=== PATIENT | male | born 1975 | race Caucasian/White ===

== ENCOUNTER 2023-09-06 20:01 | Inpatient (IN) | payer OTHER ==
[2023-09-06 20:33] VITALS: BMI 31.5
[2023-09-06] MEDS ORDERED: POLYETHYLENE GLYCOL (HEALTHYLAX) 3350 17 GM PACKET PO PRN (21:20)
[2023-09-06] MEDS ORDERED: BENZONATATE 200 MG CAPSULE PO PRN (21:20)
[2023-09-06] MEDS ORDERED: guaiFENesin 600 MG TABLET.ER (FP) PO PRN (21:20)
[2023-09-06] MEDS ORDERED: MAGNESIUM HYDROX 2400MG/30ML ORAL SUSPENSION 30 ML CUP PO PRN (21:20)
[2023-09-06] MEDS ORDERED: LOPERAMIDE HCL 2 MG CAPSULE PO PRN (21:20)
[2023-09-06] MEDS ORDERED: NALOXONE HCL 0.4 MG/ML VIAL IM PRN (21:20)
[2023-09-06] MEDS ORDERED: IBUPROFEN 400 MG TABLET (FP) PO PRN (21:20)
[2023-09-06] MEDS ORDERED: NALOXONE HCL (KLOXXADO) 8 MG SPRAY NS PRN (21:20)
[2023-09-06] MEDS ORDERED: MAG HYDROX/AL HYDROX/SIMETH 30 ML UNIT-DOSE CUP PO PRN (21:20)
[2023-09-06] MEDS ORDERED: cloNIDine HCL 0.1 MG TABLET ONE (21:30)
[2023-09-06] MEDS: cloNIDine HCL 0.1 MG TABLET PO ONE (21:40)
[2023-09-06] MEDS: THIAMINE 100 MG TABLET PO SCH (22:44)
[2023-09-06] MEDS: MELATONIN 5 MG TABLETS PO SCH (22:45)
[2023-09-07] MEDS ORDERED: TUBERCULIN PPD 5 TU/0.1ML SYRINGE (IN PATIENT USE ONLY) ID ONE (01:22)
[2023-09-07] MEDS: hydrOXYzine PAMOATE 25 MG CAPSULE (FP) PO PRN (06:22)
[2023-09-07] MEDS ORDERED: TUBERCULIN PPD 5 TU/0.1ML VIAL ID ONE (08:37)
[2023-09-07 08:55] LABS: HEMATOCRIT 43.8 % (35.4-49); HEMOGLOBIN 14.2 GM/dL (11.7-16.9); MCH 28.9 pg (25.7-33.7); MCHC 32.5 g/dl (32.0-35.9); MEAN CELL VOLUME 88.9 fl (80-96); MEAN PLT VOLUME 9.6 fl (7.5-11.1); PLATELET COUNT 231 10^3/uL (134-434); RBC 4.92 M/mm3 (4.00-5.60); WHITE BLOOD COUNT 10.9 K/mm3 (4.0-10.0)
[2023-09-07 08:58] LABS: URINE APPEARANCE CLEAR; URINE BILIRUBIN NEGATIVE (NEGATIVE); URINE COLOR YELLOW; URINE GLUCOSE (UA) NEGATIVE (NEGATIVE); URINE KETONE NEGATIVE (NEGATIVE); URINE LEUK ESTERASE NEGATIVE (NEGATIVE); URINE NITRITE NEGATIVE (NEGATIVE); URINE PROTEIN NEGATIVE (NEGATIVE); URINE UROBILINOGEN 0.2 mg/dL (0.2-1.0)
[2023-09-07 09:29] LABS: CHLORIDE 106 mmol/L (98-107); POTASSIUM 4.1 mmol/L (3.5-5.1); SODIUM 140 mmol/L (136-145)
[2023-09-07 09:39] LABS: BLOOD UREA NITROGEN 15.4 mg/dL (7-18)
[2023-09-07 09:42] LABS: SGOT/AST 16 U/L (15-37); SGPT/ALT 23 U/L (13-61)
[2023-09-07 09:43] LABS: ANION GAP 6 mmol/L (4-13); BILIRUBIN,TOTAL 0.3 mg/dL (0.2-1); CO2 28 mmol/L (21-32)
[2023-09-07 09:44] LABS: ALK PHOS 89 U/L (45-117)
[2023-09-07 09:46] LABS: GLUCOSE,RANDOM 114 mg/dL (74-106)
[2023-09-07 09:49] LABS: ALBUMIN 3.3 g/dl (3.4-5.0)
[2023-09-07 09:50] LABS: CALCIUM 9.3 mg/dL (8.5-10.1)
[2023-09-07] MEDS: amLODIPine BESYLATE 10 MG TABLET (FP) PO SCH (10:13)
[2023-09-07] MEDS: NICOTINE 21 MG/24 HOURS TOPICAL PATCH TD SCH (10:13)
[2023-09-07] MEDS: BUPRENORPHINE/NALOXONE 8 MG/2 MG FILM PACKET SL SCH (10:13)
[2023-09-07] MEDS: PRENATAL VITAMINS W/ FOLIC ACID TABLET (FP) PO SCH (10:13)
[2023-09-07] MEDS: PANTOPRAZOLE 20 MG TABLET PO SCH (10:13)
[2023-09-07] MEDS: LISINOPRIL 20 MG TABLET PO SCH (10:14)
[2023-09-07] MEDS: TUBERCULIN PPD 5 TU/0.1ML SYRINGE (IN PATIENT USE ONLY) ID ONE (10:23)
[2023-09-07 11:51] LABS: SYPHILIS W/ RPR CONF NON-REACTIVE (NONREACTIVE)
[2023-09-08] MEDS: AMOXICILLIN 500 MG CAPSULE (FP) PO SCH (14:20)
[2023-09-08] MEDS: METHOCARBAMOL 500 MG TABLET PO PRN (14:20)
[2023-09-08] MEDS: BUPRENORPHINE/NALOXONE 8 MG/2 MG FILM PACKET SL ONE (14:20)
[2023-09-08] MEDS: MECLIZINE HCL 25 MG TABLET (FP) PO SCH (14:21)
[2023-09-09] MEDS: BUPRENORPHINE/NALOXONE 12 MG-3 MG SL FILM PACKET SL SCH (09:28)
[2023-09-15] MEDS: IBUPROFEN 600 MG TABLET (FP) PO PRN (06:32)
[2023-09-15] MEDS: ASPIRIN COATED 81 MG TABLET.EC PO SCH (15:06)
[2023-09-15] MEDS: METHOCARBAMOL 500 MG TABLET PO SCH (17:56)
[2023-09-15] MEDS: BUPRENORPHINE/NALOXONE 12 MG-3 MG SL FILM PACKET SL SCH (17:56)
[2023-09-16] MEDS: PRENATAL VITAMINS W/ FOLIC ACID TABLET (FP) PO SCH (06:09)
[2023-09-16] MEDS: LISINOPRIL 20 MG TABLET PO SCH (06:10)
[2023-09-16] MEDS: PANTOPRAZOLE 20 MG TABLET PO SCH (06:10)
[2023-09-16] MEDS: NICOTINE 21 MG/24 HOURS TOPICAL PATCH TD SCH (06:11)
[2023-09-16] MEDS: amLODIPine BESYLATE 10 MG TABLET (FP) PO SCH (06:30)
[2023-09-16] MEDS: SALICYLIC ACID (WART REMOVER) 9 ML LIQUID TP SCH (09:40)
[2023-09-17] MEDS: NICOTINE POLACRILEX 2 MG GUM BUC PRN (17:39)
[2023-09-22] MEDS: PATIENT'S OWN MEDICATION (NON-FORMULARY) (Omeprazole 20 MG Capsule.Dr) PO SCH (13:54)
[2023-09-25] MEDS: BENZOCAINE/MENTHOL (CHLORASEPTIC ) LOZENGE MM PRN (06:10)
[2023-09-25] MEDS: MECLIZINE HCL 25 MG TABLET (FP) PO PRN (10:32)
[2023-09-26] MEDS: ACETAMINOPHEN 325 MG TABLET (FP) PO PRN (23:00)
[2023-09-27] MEDS ORDERED: guaiFENesin 600 MG TABLET.ER (FP) PO PRN (11:13)
[2023-09-27] MEDS ORDERED: BENZONATATE 200 MG CAPSULE PO PRN (11:13)
[2023-09-27] MEDS ORDERED: DICYCLOMINE HCL 10 MG CAPSULE PO PRN (11:13)
[2023-09-27] MEDS: PSEUDOEPHEDRINE HCL 30 MG TABLET PO SCH (12:45)
[2023-09-28] MEDS: SUVOREXANT 10 MG TABLET PO PRN (21:03)
[2023-09-29] MEDS: AZITHROMYCIN 250 MG TABLET PO ONE (15:15)
[2023-09-30 09:31] VITALS: RESP 18
[2023-09-30] MEDS: AZITHROMYCIN 250 MG TABLET PO SCH (09:41)
[2023-09-30] MEDS: SUVOREXANT 10 MG TABLET PO PRN (21:09)
[2023-10-02 07:13] VITALS: TEMP 97.3
[2023-10-03] MEDS: SUVOREXANT 10 MG TABLET PO PRN (21:19)
[2023-10-04 06:54] VITALS: BP 135/89; PULSE 86
== END 2023-10-04 09:44 | disposition home or self-care (01) | DRG 772 ==
LOC: YASAS 20:01 → Y3W 22:02
PROVIDERS: ADMIT Allergy & Immunology; ATTEND Psychiatry & Neurology Pain Medicine
PROC: HZ42ZZZ Group Counseling for Substance Abuse Treatment, Cognitive-Behavioral (ICD-10-PCS; principal; 2023-09-06)
DX: F14.20 Cocaine dependence, uncomplicated (principal); F11.20 Opioid dependence, uncomplicated; F17.210 Nicotine dependence, cigarettes, uncomplicated; F19.24 Other psychoactive substance dependence with psychoactive substance-induced mood disorder; F43.10 Post-traumatic stress disorder, unspecified; G47.00 Insomnia, unspecified; I10 Essential (primary) hypertension; J06.9 Acute upper respiratory infection, unspecified; K21.9 Gastro-esophageal reflux disease without esophagitis; M54.50 Low back pain, unspecified; G89.29 Other chronic pain; R20.0 Anesthesia of skin; Z86.59 Personal history of other mental and behavioral disorders; Z59.01 Sheltered homelessness
CPT/HCPCS: 0241U-QW; 36415; 73110-TC-RT-FY; 80053; 80307; 81003; 85027; 86780; 86803; 87070; 93005; 93010